=== PATIENT | female | born 1985 | race Hispanic/Latino ===

== ENCOUNTER 2024-08-10 13:20 | Emergency (ER) | payer MEDICAID ==
[~2024-08-10] VITALS: Ht 165.1 cm; Wt 104.3 kg
--- NOTE | 2024-08-10 13:36 | ERN ---
ED Note History of Present Illness Stated Complaint: RIGHT SHOLDER PAIN Chief Complaint: Shoulder Injury/Pain Time Seen by MD: 13:24 Dictation: 39-YEAR-OLD FEMALE HERE WITH COMPLAINTS OF RIGHT SHOULDER, LEFT HAND AND BILATERAL KNEE PAIN WITH ECCHYMOSIS STATUS POST SLIP FALL YESTERDAY. SHE STATES SHE WAS AT WORK AND A MAN WAS DELIVERING LINEN, SHE SAID SHE WENT AROUND HIM AND STATES SHE MIGHT HAVE GONE TO PASS SLIPPED AND FELL DOWN. SHE SAID SHE HAD NOT HIT HER HEAD NO LOC NO BACK PAIN NO JAW PAIN NO PELVIC PAIN. STATES SHE CALLED HER DOCTOR AND HE SAID HE COULD NOT TAKE HER, SHE CALLED THE [facility] ON HER INSURANCE AND THEY SAID THEY COULD NOT SEE HER UNTIL SEPTEMBER. SHE IS FULLY AMBULATORY TO TRIAGE, NOTED MOVING ALL EXTREMITIES AND FULL WEIGHT- BEARING BILATERALLY. ECCHYMOSIS NOTED TO LEFT PALMAR HAND AND BILATERAL ANTERIOR KNEES. NO HIP OR PELVIC PAIN NO MIDLINE SPINE PAIN SHE TOOK IBUPROFEN 400 MG PRIOR TO ARRIVAL. Allergies: Coded Allergies: No Known Allergies (Verified Allergy, 10/23/12) Past Medical History Past Medical History: Diabetes-Type II Surgical History: LMP: Jul 11, 2024 : 5 Para: 5 RN Note Reviewed/Agreed w/PFSH: Yes Review of System Dictation CONSTITUTIONAL: NEGATIVE EXCEPT FOR HPI HEAD/FACE: NEGATIVE EXCEPT FOR HPI EENT: NEGATIVE EXCEPT FOR HPI RESPIRATORY: NEGATIVE EXCEPT FOR HPI GASTROINTESTINAL/ABDOMINAL: NEGATIVE EXCEPT FOR HPI GENITOURINARY: NEGATIVE EXCEPT FOR HPI MUSCULOSKELETAL: NEGATIVE EXCEPT FOR HPI BILATERAL KNEE/RIGHT SHOULDER/LEFT HAND. INTEGUMENTARY: NEGATIVE EXCEPT FOR HPI NEUROLOGICAL/PSYCH: NEGATIVE EXCEPT FOR HPI HEMATOLOGIC/LYMPHATIC: NEGATIVE EXCEPT FOR HPI ALL SYSTEMS NEGATIVE, EXCEPT NOTED ABOVE. 13 POINT REVIEW OF SYSTEMS ASSESSED AND ALL NEGATIVE EXCEPT FOR ABOVE. Initial Vital Sign VS Vital Signs Date Time Temp Pulse Resp B/P (MAP) Pulse Ox O2 Delivery O2 Flow Rate FiO2 08/10/24 13:24 95 16 128/81 Room Air 0 08/10/24 13:54 98.6 98 21 Physical Exam Dictation VITAL SIGNS REVIEWED GENERAL APPEARANCE: ALERT, ORIENTED X 3, MODERATE ACUTE DISTRESS, WELL DEVELOPED, NOURISHED. HEAD AND FACE: NON-TRAUMATIC. EYES: PERRL, PINK CONJUNCTIVAS, EYELID NO TRAUMA, ANTERIOR CHAMBER WITH ARCUS SENILIS. EARS: PINNAS INTACT AND NO SIGNS OF TRAUMA OR ERYTHEMA EAR CANALS CLEAR AND NO DISCHARGE TM NO ERYTHEMA NOSE: NO DISCHARGE, NO BLEEDING. OROPHARYNX: MOUTH NORMAL, TONGUE PINK, PHARYNX CLEAR,NO ERYTHEMA, TONSILS NO EXUDATES, NO ABSCESSES NOTED, MUCOUS MEMBRANE MOIST NECK: SUPPLE, NON-TENDER, NO THYROMEGALY, NO MASSES, NO JVD, NO BRUITS BREAST:DEFERRED CHEST:NO TENDERNESS, NO CREPITUS, NO PARADOXICAL MOVEMENT, NO RETRACTIONS LUNGS:CLEAR, WELL-VENTILATED, SYMMETRIC, NO RALES, NO WHEEZING, NO RHONCHI, NO STRIDOR, GOOD BREATH SOUNDS BILATERALLY HEART: REGULAR RATE, REGULAR RHYTHM, NO MURMUR, NO GALLOPS VASCULAR: NO PERIPHERAL EDEMA, ABDOMEN: SOFT, POSITIVE BOWEL SOUNDS, NONDISTENDED, NO GUARDING, NONTENDER, NO REBOUND, NO MASSES NO HEPATOMEGALY, NO SPLENOMEGALY, NO OKEEFE'S SIGN, NO HERNIAS. RECTAL: DEFERRED GENITAL: DEFERRED NEUROLOGICAL: NORMAL SPEECH, MOTOR FUNCTION INTACT, SENSORY FUNCTION INTACT MUSCULOSKELETAL: NECK NONTENDER, FULL RANGE OF MOTION, BACK NONTENDER, FULL RANGE OF MOTION, EXTREMITIES: LEFT PALMAR HAND WITH ECCHYMOSIS, FULL RANGE OF MOTION NOTED. ALSO BILATERAL KNEE TENDERNESS WITH ECCHYMOSIS BILATERALLY FULL RANGE OF MOTION NOTED. SHORTENING OR ROTATION AND NO HIP PELVIC PAIN. SKIN: COLOR PINK, DRY, NO TURGOR, NO RASH, NO LACERATIONS, NO ABRASIONS, NO CONTUSIONS. LYMPHATIC: DEFERRED Results (Laboratory/Radiology) Laboratory/Radiology SHOULDER COMP 2+VWS RT REASON: RIGHT ANTEROLATERAL SHOULDER PAIN STATUS POST FALL YESTERDAY TECHNIQUE: 2 views were obtained. FINDINGS: There is no evidence of fracture or dislocation. There is no joint effusion. The soft tissues appear unremarkable. There is no evidence of a radiopaque foreign body. IMPRESSION: No acute findings. KNEE 3VWS RT REASON: LEFT PALMAR PAIN ECCHYMOSIS AFTER FALL YESTERDAY TECHNIQUE: 3 views were obtained. FINDINGS: There is no evidence of fracture or dislocation. There is no joint effusion. The soft tissues appear unremarkable. There is no evidence of a radiopaque foreign body. IMPRESSION: No acute findings. ORDER STATUS: [facility] REPORT#: [id number] SERVICE [id number] REASON: KNEE PAIN STATUS POST FALL YESTERDAY ORDERING PHYSICIAN: COLBY CARD NP PROCEDURE: KNEE 3V LT - KNEE 3VWS LT KNEE 3VWS LT REASON: KNEE PAIN STATUS POST FALL YESTERDAY TECHNIQUE: 3 views were obtained. FINDINGS: There is no evidence of fracture or dislocation. There is no joint effusion. The soft tissues appear unremarkable. There is no evidence of a radiopaque foreign body. IMPRESSION: No acute findings. ORDER 34 STATUS: [facility] REPORT#: [id number] SERVICE 33 REASON: KNEE PAIN STATUS POST FALL YESTERDAY ORDERING PHYSICIAN: COLBY CARD NP PROCEDURE: KNEE 3V LT - KNEE 3VWS LT KNEE 3VWS LT REASON: KNEE PAIN STATUS POST FALL YESTERDAY TECHNIQUE: 3 views were obtained. FINDINGS: There is no evidence of fracture or dislocation. There is no joint effusion. The soft tissues appear unremarkable. There is no evidence of a radiopaque foreign body. IMPRESSION: No acute findings. ORDER 34 STATUS: [facility] REPORT#: [id number] SERVICE 33 REASON: KNEE PAIN STATUS POST FALL YESTERDAY ORDERING PHYSICIAN: COLBY CARD NP PROCEDURE: KNEE 3V LT - KNEE 3VWS LT KNEE 3VWS LT REASON: KNEE PAIN STATUS POST FALL YESTERDAY TECHNIQUE: 3 views were obtained. FINDINGS: There is no evidence of fracture or dislocation. There is no joint effusion. The soft tissues appear unremarkable. There is no evidence of a radiopaque foreign body. IMPRESSION: No acute findings. KNEE 3VWS LT REASON: KNEE PAIN STATUS POST FALL YESTERDAY TECHNIQUE: 3 views were obtained. FINDINGS: There is no evidence of fracture or dislocation. There is no joint effusion. The soft tissues appear unremarkable. There is no evidence of a radiopaque foreign body. IMPRESSION: No acute findings. HAND 3+VWS LT REASON: LEFT PALMAR PAIN ECCHYMOSIS AFTER FALL YESTERDAY TECHNIQUE: 3 views were obtained. FINDINGS: There is no evidence of fracture or dislocation. There is no joint effusion. The soft tissues appear unremarkable. There is no evidence of a radiopaque foreign body. IMPRESSION: No acute findings. Labs Reviewed?: Yes ED Course ED Course Orders Procedure Category Date Status Time Shoulder Comp 2+Vws Rt RAD 08/10/24 Resulted 13:34 Hand 3+Vws Lt RAD 08/10/24 Resulted 13:34 Knee 3vws Lt RAD 08/10/24 Resulted 13:34 Knee 3vws Rt RAD 08/10/24 Resulted 13:34 Ketorolac 60mg/2ml PHA 08/10/24 Complete (Toradol 60mg/2ml) 14:00 Current Medications Medications (Trade) Dose Ordered Sig/Nathan Route PRN Reason Start Time Stop Time Status Last Admin Dose Admin Ketorolac Tromethamine (toRADol 60MG/ 2ML) 60 mg ONCE ONCE IM 08/10/24 14:00 08/10/24 14:01 DC 08/10/24 14:23 Vital Signs Date Time Temp Pulse Resp B/P (MAP) Pulse Ox O2 Delivery O2 Flow Rate FiO2 08/10/24 13:54 98.6 88 18 128/81 98 Room Air* 0 21 08/10/24 13:24 95 16 128/81 Room Air 0 1532, PAIN IS MARKEDLY RELIEVED AFTER PAIN MANAGEMENT GIVEN. DISCHARGED HOME WITH MULTIPLE CONTUSIONS TO FOLLOW UP WITH HER DOCTOR IN [facility]IVITY TOLERATED. Medical Decision Making MDM MEDICAL DISCHARGE MAKING BASED ON X-RAYS OF ALL PAINFUL AREAS TO INCLUDE RIGHT SHOULDER, LEFT HAND AND BILATERAL KNEES ALL X-RAYS NEGATIVE DISCHARGED HOME WITH MULTIPLE CONTUSIONS IBUPROFEN AND FLEXERIL ADMINISTERED FOR PAIN AND TOLD TO FOLLOW UP WITH HER DOCTOR. PATIENT GIVEN INFORMATION ON RICE PRINCIPLES DX & DISP Disposition: Discharge Departure Impression: Primary Impression: Contusion of right shoulder, initial encounter Additional Impressions: Contusion of knee, left, Contusion of knee, right, Contusion of left hand, initial encounter, Fall Condition: Stable Scripts Ibuprofen (Ibuprofen 800 mg Tab) 800 Mg Tab 800 MG PO Q8H PRN for fever or pain, #30 TAB 0 Refills Prov: COLBY CARD GTA 08/10/24 Cyclobenzaprine HCl (Flexeril) 10 Mg Tab 10 MG PO TID for muscle sstiffness, #14 TAB 0 Refills Prov: COLBY CARD GTA 08/10/24 Additional Instructions: FOLLOW-UP WITH PRIMARY CARE PROVIDER IN 1 TO 2 DAYS. TAKE MEDICATIONS DIRECTED HERE IN THE EMERGENCY ROOM. OKAY TO CONTINUE HOME MEDICATIONS UNLESS OTHERWISE DISCUSSED DURING YOUR VISIT IN THE EMERGENCY ROOM TODAY. RETURN TO YOUR NEAREST EMERGENCY ROOM IF SYMPTOMS WORSEN OR IF THERE IS NO IMPROVEMENT. CALL 911 IF YOU NEED IMMEDIATE ASSISTANCE. TAKE TYLENOL OR MOTRIN [id number] NEEDED AND IF NO CONTRAINDICATIONS ARE PRESENT. INCREASE ORAL HYDRATION. A WOUND CULTURE OR URINE CULTURE WAS ORDERED HERE IN THE EMERGENCY ROOM DEPARTMENT PLEASE FOLLOW-UP WITH PRIMARY CARE PROVIDER AND ADVISE THEM TO GET REPEAT PORTS FROM OUR FACILITY. IF YOU HAD ANY FELICIA WRAP/SPLINTS THAT WERE APPLIED HERE, PLEASE DO NOT REMOVE THEM UNTIL YOU SEE YOUR PRIMARY CARE OR SPECIALTY. COOL COMPRESSES THREE TO 4 TIMES A DAY TO PAIN. ACTIVITY TOLERATED. TAKE IBUPROFEN AND FLEXERIL EVERY 8 HOURS FOR THE NEXT TWO DAYS. SEE YOUR PRIMARY CARE DOCTOR FOR FOLLOW UP AND MANAGE Referrals: SELF,REFERRAL (PCP) Time of Disposition: 15:35 I have reviewed the case, and I agree with, Diagnosis and Plan COLBY CARD NP Aug 10, 2024 13:36
[2024-08-10] MEDS: ketOROlac 60 MG VIAL (30MG/ML) IM ONE (14:23)
--- NOTE | 2024-08-10 15:26 | HMCIMG ---
HAND 3+VWS LT REASON: LEFT PALMAR PAIN ECCHYMOSIS AFTER FALL YESTERDAY TECHNIQUE: 3 views were obtained. FINDINGS: There is no evidence of fracture or dislocation. There is no joint effusion. The soft tissues appear unremarkable. There is no evidence of a radiopaque foreign body. IMPRESSION: No acute findings.
--- NOTE | 2024-08-10 15:27 | HMCIMG ---
KNEE 3VWS RT REASON: LEFT PALMAR PAIN ECCHYMOSIS AFTER FALL YESTERDAY TECHNIQUE: 3 views were obtained. FINDINGS: There is no evidence of fracture or dislocation. There is no joint effusion. The soft tissues appear unremarkable. There is no evidence of a radiopaque foreign body. IMPRESSION: No acute findings.
--- NOTE | 2024-08-10 15:27 | HMCIMG ---
SHOULDER COMP 2+VWS RT REASON: RIGHT ANTEROLATERAL SHOULDER PAIN STATUS POST FALL YESTERDAY TECHNIQUE: 2 views were obtained. FINDINGS: There is no evidence of fracture or dislocation. There is no joint effusion. The soft tissues appear unremarkable. There is no evidence of a radiopaque foreign body. IMPRESSION: No acute findings.
--- NOTE | 2024-08-10 15:27 | HMCIMG ---
KNEE 3VWS LT REASON: KNEE PAIN STATUS POST FALL YESTERDAY TECHNIQUE: 3 views were obtained. FINDINGS: There is no evidence of fracture or dislocation. There is no joint effusion. The soft tissues appear unremarkable. There is no evidence of a radiopaque foreign body. IMPRESSION: No acute findings.
[2024-08-10] MEDS ORDERED: CYCL10TA16 PO (15:36)
[2024-08-10] MEDS ORDERED: IBUP-2077 PO (15:36)
[2024-08-10 15:42] VITALS: BP 122/78; PULSE 82; RESP 18; TEMP 98.6; O2SAT 98
--- NOTE | 2024-08-10 15:44 | NUR ---
RT ARM SLING APPLIED, PT TOLERATED WELL
== END 2024-08-10 15:53 | disposition home or self-care (01) ==
LOC: EDH 13:20
DX: S40.011A Contusion of right shoulder, initial encounter (principal); S60.222A Contusion of left hand, initial encounter; S80.01XA Contusion of right knee, initial encounter; S80.02XA Contusion of left knee, initial encounter; E11.9 Type 2 diabetes mellitus without complications; Z98.890 Other specified postprocedural states; W01.0XXA Fall on same level from slipping, tripping and stumbling without subsequent striking against object, initial encounter; Y93.89 Activity, other specified; Y92.89 Other specified places as the place of occurrence of the external cause; Y99.8 Other external cause status
CPT/HCPCS: 99284; 73130; 73562 ×2; 73030; 96372; J1885